=== PATIENT | female | born 1940 | race Caucasian/White ===

== ENCOUNTER 2024-05-05 09:22 | Emergency (ER) | payer MEDICARE, SELFPAY ==
[2024-05-05 09:29] VITALS: BP 167/76
[2024-05-05 11:52] LABS: % Basophils 0.6 % (0-2); % Eosinophils 0.9 % (0-6); % Immature Granulocytes 0.3 % (0-0.5); % Lymphocytes 14.9 % (20.5-51.1); % Monocytes 6.8 % (1.7-9.3); % Neutrophils 76.5 % (42.2-75.2); Absolute Eosinophils 0.1 10^3/uL (0-0.7); Absolute Monocytes 0.4 10^3/uL (0.1-0.6); Absolute Neutrophils 4.9 10^3/uL (1.4-6.5); Hematocrit 43.3 % (37.0-47.0); Hemoglobin 14.3 g/dL (12.0-16.0); Mean Corpuscular Hgb 29.9 pg (27.0-31.0); Mean Corpuscular Volume 90.4 fL (81.0-99.0); Mean Platelet Volume 9.6 fL (7.4-10.4); Nucleated Red Blood Cells % 0 %; Platelet Count 160 10^3/uL (130-400); Red Blood Cell Count 4.79 10^6/uL (4.20-5.40); Red Cell Dist. Width 14.2 % (11.5-14.5); White Blood Cell Count 6.4 10^3/uL (4.8-10.8)
[2024-05-05 12:09] LABS: ALT (SGPT) < 10 U/L (0-35); AST (SGOT) 30 U/L (14-36); Albumin 4.4 g/dl (3.5-5.0); Alkaline Phosphatase 83 U/L (38-126); Blood Urea Nitrogen 19 mg/dl (7-17); Calcium 9.7 mg/dl (8.4-10.2); Carbon Dioxide 25 mmol/L (22-30); Chloride 108 mmol/L (98-107); Glucose 97 mg/dl (70-99); Potassium 4.4 mmol/L (3.5-5.1); Sodium 139 mmol/L (135-145); Total Bilirubin 0.9 mg/dl (0.2-1.3); Total Protein 6.8 g/dl (6.3-8.2); eGFR 56.25
[2024-05-05 12:17] LABS: Troponin I 0.015 ng/ml
[2024-05-05 13:31] VITALS: BMI 28.0
[2024-05-05 13:34] VITALS: BP 183/98
--- NOTE | 2024-05-05 15:03 | ED.GENMED ---
History of Present Illness
General
Chief Complaint: Dizziness
Source: patient
Time Seen by Provider: 05/05/24 13:51
Travel History
Have you had any contact with someone who has COVID-19?: No
Do you have any symptoms of coronavirus? Fever > 100 degrees, chills, cough, shortness of breath, sore throat, loss of taste or smell, muscle aches, or headache?: No
History of Present Illness
History of Present Illness:
84-year-old female with past medical history of Parkinson's disease, hypertension, hyperlipidemia, atrial fibrillation, chronic kidney disease, diabetes presenting to the emergency department for evaluation after waking up this morning and feeling
lightheaded and as if she were going to lose her balance, this lasted for a little while but then resolved and patient notes that she feels better now. She denies any other symptoms including headache, visual changes, focal weakness or, chest pain,
shortness of breath, fevers or infectious symptoms or any other concerns. She does note that she has felt intermittently dizzy in the past but this 1 seem to be a little bit more intense. Did not take any medications prior to arrival. No other
concerns.
Past History
Past History
ED Past Medical History: Arrthythmia, HTN, Hypercholesterolemia, NIDDM, Renal failure, Psychiatric and Other (Hypoplastic kidney, compression fracture, cataracts)
ED Past Surgical History: Cardiac, Orthopedic and Other (CEA on the right, cardioversion)
Social History
Tobacco: Non-smoker
Alcohol: Occasional
Drug: None
Personal: Single
Living: alone
Review of Systems
Review of Systems
All Other Systems: ROS reviewed and negative except as documented in HPI and ROS
Phy Exam
Physical Exam
Physical Exam:
GENERAL: Alert , in no apparent distress
EYE: pupils equal and reactive, 3 mm bilateral
NECK: Supple
ENT: o/p clr, mmm.
CARDIAC: Regular rate and rhythm, faint systolic murmur right second intercostal space.
LUNGS: Clear breath sounds bilaterally, no acute respiratory distress, no wheezes/rales/rhonchi
ABDOMEN: Soft, without focal tenderness, no r/g, no cvat
NEUROLOGICAL: Alert and oriented, no focal neuro deficits, moves all extremities, ambulates using a walker but steady and without evidence for ataxia
SKIN: Warm and dry, skin intact.
MUSCULOSKELETAL: No edema, well perfused.
PSYCH: Normal and appropriate interaction.
Scores
Heart Failure Risk
Heart Failure Risk Score: Not Applicable
Heart Score for Chest Pain Patients
STEMI patient?: Not applicable
Withdrawal Assessment of Alcohol
Withdrawal Assessment Completed?: Not applicable
Course
Orders/Labs/Results
Orders:
Orders
05/05/24 09:33
Electrocardiogram (*1) Urgent
Reason for Study: Vertigo / Dizzy
05/05/24 09:34
EKG- Treatment ONCE
05/05/24 10:08
CT Head W/o Iv Contrast Urgent
Comment:
Reason For Exam: dizzy
05/05/24 11:40
Complete Blood Count/With Diff Urgent
Comprehensive Metabolic Panel Urgent
Troponin I Urgent
05/05/24 13:58
PT Consult [Pt Eval And Treat] Urgent
Activity Level: Ambulate
05/05/24 15:03
Troponin I Urgent
Abnormal Lab Results
05/05/24
11:40
Absolute Lymphs (auto) 1.0 L 10^3/uL
(1.2-3.4)
Neutrophils % 76.5 H %
(42.2-75.2)
Lymphocytes % 14.9 L %
(20.5-51.1)
Chloride 108 H mmol/L
(98-107)
BUN 19 H mg/dl
(7-17)
05/05/24 11:40
05/05/24 11:40
Vital Signs
Initial and Last Documented VS:
Initial Vital Signs
Temp Pulse Resp BP Pulse Ox
98.4 F 61 18 167/76 92
05/05/24 09:29 05/05/24 09:29 05/05/24 09:29 05/05/24 09:29 05/05/24 09:29
Last Documented Vital Signs
Temp Pulse Resp BP Pulse Ox
98.4 F 90 20 162/82 98
05/05/24 09:29 05/05/24 16:25 05/05/24 13:34 05/05/24 16:25 05/05/24 16:25
MDM/Problems Addressed
Differential Diagnosis Includes:
Vertigo, TIA, anemia, electrolyte disturbance
MDM/Problems Addressed:
84-year-old female presenting emergency department for evaluation of lightheadedness/dizziness that began this morning upon awakening, symptoms now fully resolved and patient states she feels much better. She does note a little bit of generalized
weakness but believes this is likely from her Parkinson's. She notes that she does have a walker and will intermittently use the walker. No fevers or infectious symptoms. Patient had labs ordered in triage and she had a normal troponin but non
negative so we will repeat this. Will order physical therapy consult to ensure patient's stability while ambulating. Patient ultimately wishes to be discharged home following completion of workup.
Chronic conditions affecting care: Neurological disorder
Acute Exacerbation and/or Progression of Chronic Illness: Neurological disorder
*Radiology
Radiology exam reviewed: radiology read reviewed
*Pulse Oximetry
Patient hypoxic: no
*EKG
Interpreted by ED Provider?: Yes
Comparison EKG: no changes
Heart Rate: 74
Rate: normal
Rhythm: sinus
*Critical Care Note
Total Time (30-74mins, 75-104mins- exclusive of procedures): Not Applicable
Data Reviewed
Review of Other/Old Records Reveals: Labs and Records
Source: patient
Patient Management
Discussion with other providers: Other
Escalation/DeEscalation of care consider admission/obs:
Patient seen by the physical therapy team and was able to ambulate using a walker without any difficulty. Awaiting repeat troponin with anticipation of this being normal that patient can be discharged home safely.
Repeat troponin unchanged. Patient remains asymptomatic. Stable for discharge home and outpatient management. She is aware of return precautions to the emergency department.
ED Attending Note
-
Portions of this chart may have been created with voice recognition software.� Occasional wrong word or��sound alike� substitutions may have occurred due to the inherent limitations of voice recognition software.
Discharge Plan
Departure
Patient Disposition: Home (Routine Discharge)
Date of Disposition: 05/05/24
Time of Disposition: 16:01
Patient with high blood pressure during this ER visit?: Yes
Discharge Problem:
Generalized weakness
Instructions: Dizziness
Prescriptions:
No Action
acetaminophen 325 MG tablet
650 mg PO Q4HPRN PRN (Reason: mild pain)
cyanocobalamin (vitamin B-12) 1,000 MCG tablet
1,000 mcg PO DAILY
simvastatin 20 MG tablet
40 mg PO HS
metformin 500 MG tablet extended release 24 hr
500 mg PO HS
levothyroxine 112 MCG tablet
112 mcg PO DAILY
apixaban [Eliquis] 5 MG tablet
5 mg PO BID
mirabegron [Myrbetriq] 50 MG tablet extended release 24 hr
50 mg PO DAILY
phenazopyridine 200 MG tablet
200 mg PO TID PRN (Reason: urinary burning)
Patient Comments:
patient last took 4 days ago
coenzyme Q10 30 MG capsule
30 mg PO DAILY
L.acidoph, paracasei,B. lactis 1 EACH capsule
1 ea PO DAILY
diltiazem HCl 120 MG capsule,extended release 24hr
120 mg PO HS
losartan 100 MG tablet
100 mg PO HS
dofetilide 125 MCG capsule
125 mcg PO BID
Referrals:
UNKNOWN - PT DOES,NOT KNOW [Family Provider] -
Interventions
Interventions:
*Risk Screen - Suicide Last Done: 05/05/24 09:32
*General Assessment Last Done: 05/05/24 09:32
*Neglect/Abuse Screening Last Done: 05/05/24 09:32
ED- Fall Risk Assessment Last Done: 05/05/24 13:31
*Nursing Disposition Last Done: 05/05/24 18:22
ED- Neurological Assessment Last Done: 05/05/24 13:31
ED- Cardiac Assessment Last Done: 05/05/24 13:31
ED Swallowing Screen Last Done: 05/05/24 13:39
Discharge Date and Time
Discharge Date/Time: 05/05/24 18:23
Print Language: VINCENTIAN
[2024-05-05 15:37] LABS: Troponin I 0.016 ng/ml
[2024-05-05 16:25] VITALS: BP 162/82
--- NOTE | 2024-05-05 17:10 | EDRN ---
Reviewed discharge instructions with patient. Verbalized understanding. Patient waiting to be picked up by wheelchair van around 1800.
== END 2024-05-05 18:23 | disposition home or self-care (01) ==
LOC: EMR 09:22
PROVIDERS: Emergency Medicine; Physician Assistant Medical; EMERGENCY PHYSICIAN Emergency Medicine
DX: R53.1 Weakness (principal); R42 Dizziness and giddiness; E11.22 Type 2 diabetes mellitus with diabetic chronic kidney disease; N18.9 Chronic kidney disease, unspecified; E11.36 Type 2 diabetes mellitus with diabetic cataract; E78.00 Pure hypercholesterolemia, unspecified; G20.A1 Parkinson's disease without dyskinesia, without mention of fluctuations; I12.9 Hypertensive chronic kidney disease with stage 1 through stage 4 chronic kidney disease, or unspecified chronic kidney disease; I48.91 Unspecified atrial fibrillation; Q60.5 Renal hypoplasia, unspecified; Z79.01 Long term (current) use of anticoagulants; Z79.84 Long term (current) use of oral hypoglycemic drugs; Z88.1 Allergy status to other antibiotic agents; Z88.2 Allergy status to sulfonamides
CPT/HCPCS: 99285; 70450; 80053; 84484; 85025; 93005

== ENCOUNTER → 2024-09-15 13:29 | Outpatient (REF) | payer MEDICARE, SELFPAY | LOC: PAVMRI 13:29 | PROVIDERS: ATTENDING PHYSICIAN Psychiatry & Neurology Neurology; FAMILY PHYSICIAN Family Medicine | DX: G20.A2 Parkinson's disease without dyskinesia, with fluctuations (principal) | CPT/HCPCS: 70553; A9575 ==

== ENCOUNTER → 2024-10-07 11:13 | Outpatient (REF) | payer MEDICARE, SELFPAY ==
[2024-10-07 11:57] LABS: % Basophils 0.6 % (0-2); % Eosinophils 1.6 % (0-6); % Immature Granulocytes 0.5 % (0-0.5); % Lymphocytes 9.6 % (20.5-51.1); % Monocytes 7.1 % (1.7-9.3); % Neutrophils 80.6 % (42.2-75.2); Absolute Basophils 0.1 10^3/uL (0-0.2); Absolute Eosinophils 0.2 10^3/uL (0-0.7); Absolute Immature Granulocytes 0.1 10^3/uL (0-0.05); Absolute Monocytes 0.8 10^3/uL (0.1-0.6); Absolute Neutrophils 8.5 10^3/uL (1.4-6.5); Hematocrit 38.2 % (37.0-47.0); Hemoglobin 12.9 g/dL (12.0-16.0); Mean Corp Hgb Conc. 33.8 g/dL (33.0-37.0); Mean Corpuscular Hgb 29.1 pg (27.0-31.0); Mean Platelet Volume 11.2 fL (7.4-10.4); Platelet Count 177 10^3/uL (130-400); Red Blood Cell Count 4.44 10^6/uL (4.20-5.40); Red Cell Dist. Width 13.7 % (11.5-14.5); White Blood Cell Count 10.6 10^3/uL (4.8-10.8)
[2024-10-07 12:00] LABS: ALT (SGPT) 10 U/L (0-35); AST (SGOT) 24 U/L (14-36); Alkaline Phosphatase 68 U/L (38-126); Blood Urea Nitrogen 31 mg/dl (7-17); Chloride 98 mmol/L (98-107); Glucose 73 mg/dl (70-99); HDL Cholesterol 35 mg/dl; LDL Cholesterol, Calculated 78 mg/dl; Magnesium 2.1 mg/dl (1.6-2.3); Potassium 4.3 mmol/L (3.5-5.1); Sodium 136 mmol/L (135-145); Total Bilirubin 0.5 mg/dl (0.2-1.3); Total Cholesterol 135 mg/dl (50-199); Triglyceride 114 mg/dl (10-149); Very Low Density Lipoprotein 22 mg/dl (0-30); eGFR 41.06
[2024-10-07 12:09] LABS: Albumin 3.4 g/dl (3.5-5.0); Carbon Dioxide 25 mmol/L (22-30); Total Protein 5.6 g/dl (6.3-8.2)
[2024-10-07 12:49] LABS: Vitamin B12 838 pg/ml (239-931)
[2024-10-07 13:24] LABS: Glycohemoglobin (HgbA1c) 5.6 % (4.0-5.6)
== END ==
LOC: OLABN 11:13
PROVIDERS: ATTENDING PHYSICIAN Student in an Organized Health Care Education/Training Program
DX: I48.20 Chronic atrial fibrillation, unspecified (principal); E53.8 Deficiency of other specified B group vitamins; N17.9 Acute kidney failure, unspecified; E11.40 Type 2 diabetes mellitus with diabetic neuropathy, unspecified; E78.5 Hyperlipidemia, unspecified
CPT/HCPCS: 36415; 80053; 80061; 82607; 83036; 83735; 85025

== ENCOUNTER → 2024-10-25 10:12 | Outpatient (REF) | payer OTHER, MEDICARE, SELFPAY ==
[2024-10-25 11:59] LABS: Urine Albumin Trace (Neg - Trace); Urine Bilirubin Negative (Negative); Urine Character Slightly Cloudy (Clear); Urine Color Yellow; Urine Glucose Negative (Negative); Urine Ketone Trace (Negative); Urine Leukocyte 2+ (Negative); Urine Nitrite Negative (Negative); Urine Occult Blood Negative (Negative); Urine Specific Gravity 1.015 (<1.030); Urine Urobilinogen Negative (Neg - 1+)
[2024-10-25 12:56] LABS: Urine Bacteria Many (Negative); Urine Red Blood Cell 0-2 /HPF (0-2); Urine Squamous Cell 0-2 /LPF (Few); Urine White Cell 80-90 /HPF (0-5)
== END ==
LOC: OLABN 10:12
PROVIDERS: ATTENDING PHYSICIAN Student in an Organized Health Care Education/Training Program
DX: R30.9 Painful micturition, unspecified (principal)
CPT/HCPCS: 81003; 81015; 87077; 87086

== ENCOUNTER → 2024-11-17 14:43 | Outpatient (REF) | payer MEDICARE, SELFPAY ==
[2024-11-17 15:12] LABS: Urine Albumin Trace (Neg - Trace); Urine Bilirubin 1+ (Negative); Urine Character Very Cloudy (Clear); Urine Color Yellow; Urine Glucose Negative (Negative); Urine Ketone 1+ (Negative); Urine Leukocyte 1+ (Negative); Urine Nitrite Negative (Negative); Urine Occult Blood Negative (Negative); Urine Specific Gravity 1.025 (<1.030); Urine Urobilinogen 2+ (Neg - 1+)
[2024-11-17 15:31] LABS: Urine Amorphous Seen
[2024-11-17 15:34] LABS: Urine Bacteria Few (Negative); Urine Red Blood Cell 0-2 /HPF (0-2)
== END ==
LOC: CLAB 14:43
PROVIDERS: ATTENDING PHYSICIAN Family Medicine
DX: N18.9 Chronic kidney disease, unspecified (principal); N39.0 Urinary tract infection, site not specified; Z87.440 Personal history of urinary (tract) infections
CPT/HCPCS: 81003; 81015; 87077; 87086

== ENCOUNTER 2024-12-03 18:48 | Emergency (ER) | payer MEDICARE, SELFPAY ==
[2024-12-03 18:53] VITALS: BP 136/77
[2024-12-03 19:24] LABS: % Basophils 0.5 % (0-2); % Eosinophils 1.8 % (0-6); % Immature Granulocytes 0.3 % (0-0.5); % Lymphocytes 11.1 % (20.5-51.1); % Monocytes 6.8 % (1.7-9.3); % Neutrophils 79.5 % (42.2-75.2); Absolute Eosinophils 0.1 10^3/uL (0-0.7); Absolute Lymphocytes 0.9 10^3/uL (1.2-3.4); Absolute Monocytes 0.5 10^3/uL (0.1-0.6); Absolute Neutrophils 6.2 10^3/uL (1.4-6.5); Hematocrit 38.9 % (37.0-47.0); Hemoglobin 12.6 g/dL (12.0-16.0); Mean Corp Hgb Conc. 32.4 g/dL (33.0-37.0); Mean Corpuscular Hgb 29.8 pg (27.0-31.0); Mean Platelet Volume 9.4 fL (7.4-10.4); Nucleated Red Blood Cells % 0 %; Platelet Count 203 10^3/uL (130-400); Red Blood Cell Count 4.23 10^6/uL (4.20-5.40); Red Cell Dist. Width 14.2 % (11.5-14.5); White Blood Cell Count 7.8 10^3/uL (4.8-10.8)
[2024-12-03 20:01] LABS: ALT (SGPT) 11 U/L (0-35); AST (SGOT) 29 U/L (14-36); Albumin 3.9 g/dl (3.5-5.0); Alkaline Phosphatase 64 U/L (38-126); Blood Urea Nitrogen 21 mg/dl (7-17); Calcium 9.3 mg/dl (8.4-10.2); Carbon Dioxide 27 mmol/L (22-30); Chloride 101 mmol/L (98-107); Glucose 97 mg/dl (70-99); Lipase 66 U/L (23-300); Potassium 4.3 mmol/L (3.5-5.1); Sodium 137 mmol/L (135-145); Total Bilirubin 0.5 mg/dl (0.2-1.3); Total Protein 6.1 g/dl (6.3-8.2); eGFR 50.17
[2024-12-03 22:44] VITALS: BP 139/62
[2024-12-03 22:52] VITALS: BMI 28.0
--- NOTE | 2024-12-03 22:55 | EDRN ---
Pt went to family doctor today due to 'marked drowsiness' continued abd pressure from uti. Doctor said pt could wait over the weekend to see how she feels or go to ED per pt's daughter so pt was brought to ED. No diarrhea, has had some
constipation. Pt with LLQ abdominal pain. Pt has been trying to provide urine specimen, most recently 20 minutes ago, without success. Pt had 100.6 temp 5 days ago with no return since. Pt denies n/v, cough, cp, sob.
[2024-12-03 23:00] VITALS: BP 133/49
--- NOTE | 2024-12-03 23:00 | ED.GENMED ---
History of Present Illness
General
Chief Complaint: Weakness
Source: patient and family (Daughter)
Exam Limitations: none
Time Seen by Provider: 12/03/24 22:52
History of Present Illness
History of Present Illness:
Patient complaining of recurrent urinary symptoms with urgency frequency. Treated for UTI initially with Macrobid. Then changed to Augmentin. Recent urine culture showed 60,000 strep. Was placed on Augmentin. However continues to have urinary
urgency frequency and some vague lower abdominal symptoms. No nausea or vomiting. Some fatigue. No fever. Constipated.
Past History
Past History
ED Past Medical History: Arrthythmia, HTN, Hypercholesterolemia, NIDDM, Renal failure, Psychiatric and Other (Hypoplastic kidney, compression fracture, cataracts)
ED Past Surgical History: Cardiac, Orthopedic and Other (CEA on the right, cardioversion)
Social History
Tobacco: Non-smoker
Alcohol: Occasional
Drug: None
Personal: Single
Living: alone
Review of Systems
Review of Systems
All Other Systems: Not applicable
Constitutional: Denies fever or chills
Respiratory: Reports no symptoms
Cardiac: Reports no symptoms
Phy Exam
Physical Exam
Physical Exam:
GENERAL: Alert and oriented in no apparent distress
EYE: Orbits normal.
NECK: Supple
CARDIAC: Regular rate and rhythm without any obvious murmurs.
LUNGS: Clear breath sounds,normal
ABDOMEN: Soft, bowel sounds present. Mild reproducible tenderness left lower quadrant. No rebound or guarding no mass or hernia
Neuro: Nonfocal. Speech normal. Slight masked facies
SKIN: Warm and dry, no rash or lesion, no discoloration, skin intact.
MUSCULOSKELETAL: Moderate bilateral lower extremity pitting edema right greater than left
PSYCH: Normal and appropriate interaction.
Course
Orders/Labs/Results
Orders:
Orders
12/03/24 18:55
Urinalysis Reflex To Culture Urgent
Date Specimen was Collected: 12/03/24
Time Specimen was Collected: 18:55
12/03/24 19:18
Complete Blood Count/With Diff Urgent
Comprehensive Metabolic Panel Urgent
Lipase Urgent
12/03/24 22:59
CT Abd/Pel (IV only)-DH only Urgent
Comment:
Reason For Exam: Left lower quadrant pain
Straight cath- Treatment ONCE
Abnormal Lab Results
12/03/24
19:18
MCHC 32.4 L g/dL
(33.0-37.0)
Absolute Lymphs (auto) 0.9 L 10^3/uL
(1.2-3.4)
Neutrophils % 79.5 H %
(42.2-75.2)
Lymphocytes % 11.1 L %
(20.5-51.1)
BUN 21 H mg/dl
(7-17)
Creatinine 1.1 H mg/dL
(0.6-1.0)
Total Protein 6.1 L g/dl
(6.3-8.2)
12/03/24 19:18
12/03/24 19:18
Vital Signs
Initial and Last Documented VS:
Initial Vital Signs
Temp Pulse Resp BP Pulse Ox
97.6 F 86 16 136/77 96
12/03/24 18:53 12/03/24 18:53 12/03/24 18:53 12/03/24 18:53 12/03/24 18:53
Last Documented Vital Signs
Temp Pulse Resp BP Pulse Ox
97.6 F 74 14 119/60 96
12/03/24 18:53 12/04/24 02:00 12/04/24 02:00 12/04/24 02:00 12/04/24 02:00
MDM/Problems Addressed
MDM/Problems Addressed:
Differential includes recurrent UTI. Diverticulitis. Nonspecific colitis although no diarrhea or mucousy or bloody stools. Workup in progress
*Radiology
Radiology exam reviewed: radiology read reviewed (Bladder wall thickening no evidence of obstructing stone. Some mildly dilated loops of bowel. Nonspecific in nature)
*Pulse Oximetry
Patient hypoxic: no
*Critical Care Note
Total Time (30-74mins, 75-104mins- exclusive of procedures): Not Applicable
Data Reviewed
Review of Other/Old Records Reveals: Labs, Records and Testing
Update Note
Update Note:
Patient was unable to be catheterized and unable to get a urine here. She just finished Augmentin. Options were to reattempt catheterization which patient and family refused. Await here for urine or send as an outpatient in a few days. Family
would prefer this approach. I would rather not cover with antibiotics at this time and get a better urine specimen. As for the bowel loop dilatation she clinically is not obstructed. Patient and family are comfortable with discharge to follow-up
ED Attending Note
-
Portions of this chart may have been created with voice recognition software.� Occasional wrong word or��sound alike� substitutions may have occurred due to the inherent limitations of voice recognition software.
Discharge Plan
Departure
Patient Disposition: Home (Routine Discharge)
Date of Disposition: 12/04/24
Time of Disposition: 02:06
Patient with high blood pressure during this ER visit?: Yes
Discharge Problem:
Abdominal pain/recent UTI
Instructions: Abdominal pain in adults - Discharge instructions, BLOOD PRESSURE
Prescriptions:
No Action
cyanocobalamin (vitamin B-12) 1,000 MCG tablet
1,000 mcg PO DAILY
simvastatin 20 MG tablet
40 mg PO HS
metformin 500 MG tablet extended release 24 hr
500 mg PO HS
levothyroxine 112 MCG tablet
112 mcg PO DAILY
Eliquis 5 MG tablet
5 mg PO BID
mirabegron [Myrbetriq] 50 MG tablet extended release 24 hr
50 mg PO DAILY
L.acidoph,paracasei,B.animalis 1 EACH capsule
1 ea PO DAILY
diltiazem HCl 120 MG capsule,extended release 24hr
120 mg PO HS
dofetilide 125 MCG capsule
125 mcg PO BID
amantadine HCl 100 mg Tablet
100 mg PO DAILY
carbidopa-levodopa [Sinemet CR] 25-100 mg Tablet Extended Release
1 tab PO TID
losartan 25 mg Tablet
25 mg PO HS
pitavastatin calcium 2 mg Tablet
2 mg PO HS
Referrals:
Xiang Cristobal DO [Family Provider] - Follow up in 2-3 days
Activity Restrictions/Additional Instructions:
Get the urine specimen done Friday
Light diet. Stay hydrated
Return sooner with fever increased lethargy increased abdominal pain vomiting or any other concerning send
Interventions
Interventions:
*Risk Screen - Suicide Last Done: 12/03/24 23:34
*General Assessment Last Done: 12/03/24 22:52
*Neglect/Abuse Screening Last Done: 12/03/24 22:54
*ED COVID-19 Vaccine History Last Done: 12/03/24 22:52
ED- Neurological Assessment Last Done: 12/03/24 23:34
ED- Pulmonary Assessment Last Done: 12/03/24 23:34
Discharge Date and Time
Print Language: SWEDISH
[2024-12-04 00:12] VITALS: BP 132/57
[2024-12-04 01:00] VITALS: BP 124/47
[2024-12-04 02:00] VITALS: BP 119/60
[2024-12-04 03:10] LABS: Urine Albumin Trace (Neg - Trace); Urine Bilirubin Negative (Negative); Urine Character Clear (Clear); Urine Color Yellow; Urine Glucose Negative (Negative); Urine Ketone Negative (Negative); Urine Leukocyte Trace (Negative); Urine Nitrite Negative (Negative); Urine Occult Blood 3+ (Negative); Urine Urobilinogen Negative (Neg - 1+)
[2024-12-04 04:52] LABS: Urine Bacteria Few (Negative); Urine Squamous Cell >30 /LPF (Few); Urine White Cell 0-2 /HPF (0-5)
== END 2024-12-04 02:53 | disposition home or self-care (01) ==
LOC: EMR 18:48
PROVIDERS: Emergency Medicine; EMERGENCY PHYSICIAN Emergency Medicine; FAMILY PHYSICIAN Family Medicine
DX: R10.30 Lower abdominal pain, unspecified (principal); Z87.440 Personal history of urinary (tract) infections; I10 Essential (primary) hypertension
CPT/HCPCS: 99285; 74177; 80053; 81003; 81015; 83690; 85025; Q9967

== ENCOUNTER → 2025-03-14 12:10 | Outpatient (REF) | payer OTHER, MEDICARE, SELFPAY ==
[2025-03-14 13:12] LABS: Hematocrit 29.7 % (37.0-47.0); Hemoglobin 9.1 g/dL (12.0-16.0); Mean Corp Hgb Conc. 30.6 g/dL (33.0-37.0); Mean Corpuscular Hgb 30.3 pg (27.0-31.0); Mean Platelet Volume 9.1 fL (7.4-10.4); Platelet Count 248 10^3/uL (130-400)
[2025-03-14 15:04] LABS: ALT (SGPT) 12 U/L (0-35); AST (SGOT) 17 U/L (14-36); Albumin 3.5 g/dl (3.5-5.0); Alkaline Phosphatase 108 U/L (38-126); Blood Urea Nitrogen 20 mg/dl (7-17); Calcium 8.9 mg/dl (8.4-10.2); Carbon Dioxide 24 mmol/L (22-30); Chloride 108 mmol/L (98-107); Glucose 95 mg/dl (70-99); Magnesium 2.1 mg/dl (1.6-2.3); Potassium 4.7 mmol/L (3.5-5.1); Sodium 142 mmol/L (135-145); Total Bilirubin 1.1 mg/dl (0.2-1.3); Total Protein 5.8 g/dl (6.3-8.2); eGFR 56.25
== END ==
LOC: OLABWHC 12:10
PROVIDERS: ATTENDING PHYSICIAN Family Medicine
DX: E11.9 Type 2 diabetes mellitus without complications (principal); I48.91 Unspecified atrial fibrillation; N18.9 Chronic kidney disease, unspecified; D64.9 Anemia, unspecified; G20.A1 Parkinson's disease without dyskinesia, without mention of fluctuations; I10 Essential (primary) hypertension
CPT/HCPCS: 36415; 80053; 83735; 85027

== ENCOUNTER → 2025-03-22 09:09 | Outpatient (REF) | payer MEDICARE, SELFPAY ==
[2025-03-22 11:28] LABS: Urine Albumin Negative (Neg - Trace); Urine Bilirubin Negative (Negative); Urine Character Clear (Clear); Urine Color Yellow; Urine Glucose Negative (Negative); Urine Ketone Negative (Negative); Urine Leukocyte 1+ (Negative); Urine Nitrite Negative (Negative); Urine Occult Blood Negative (Negative); Urine Urobilinogen Negative (Neg - 1+)
[2025-03-22 12:48] LABS: Urine Squamous Cell 16-20 /LPF (Few); Urine Urothelial Cell 0-2 /LPF (FEW)
[2025-03-22 12:50] LABS: Urine Bacteria Many (Negative); Urine White Cell 26-30 /HPF (0-5)
== END ==
LOC: OLABWHC 09:09
PROVIDERS: ATTENDING PHYSICIAN Family Medicine
DX: N39.0 Urinary tract infection, site not specified (principal)
CPT/HCPCS: 81003; 81015

== ENCOUNTER → 2025-03-28 08:00 | Outpatient (REF) | payer MEDICARE, SELFPAY ==
[2025-03-28 14:31] LABS: Urine Albumin 1+ (Neg - Trace); Urine Bilirubin Negative (Negative); Urine Character Clear (Clear); Urine Color Yellow; Urine Glucose Negative (Negative); Urine Ketone Negative (Negative); Urine Leukocyte 3+ (Negative); Urine Nitrite Negative (Negative); Urine Occult Blood 3+ (Negative); Urine Urobilinogen Negative (Neg - 1+)
[2025-03-28 14:50] LABS: Urine Bacteria Many (Negative); Urine White Cell 30-40 /HPF (0-5)
== END ==
LOC: OLABWHC 08:00
PROVIDERS: ATTENDING PHYSICIAN Family Medicine
DX: R35.0 Frequency of micturition (principal); R35.89 Other polyuria
CPT/HCPCS: 81003; 81015; 87086; 87088; 87186

== ENCOUNTER → 2025-04-13 10:40 | Outpatient (REF) | payer MEDICARE, SELFPAY ==
[2025-04-13 12:58] LABS: Hematocrit 33.8 % (37.0-47.0); Hemoglobin 10.9 g/dL (12.0-16.0); Mean Corp Hgb Conc. 32.2 g/dL (33.0-37.0); Mean Corpuscular Hgb 29.3 pg (27.0-31.0); Mean Corpuscular Volume 90.9 fL (81.0-99.0); Mean Platelet Volume 10.2 fL (7.4-10.4); Platelet Count 182 10^3/uL (130-400); Red Blood Cell Count 3.72 10^6/uL (4.20-5.40); Red Cell Dist. Width 14.3 % (11.5-14.5); White Blood Cell Count 9.6 10^3/uL (4.8-10.8)
[2025-04-13 13:11] LABS: ALT (SGPT) < 10 U/L (0-35); AST (SGOT) 14 U/L (14-36); Albumin 3.3 g/dl (3.5-5.0); Alkaline Phosphatase 94 U/L (38-126); Blood Urea Nitrogen 23 mg/dl (7-17); Calcium 8.6 mg/dl (8.4-10.2); Carbon Dioxide 22 mmol/L (22-30); Chloride 108 mmol/L (98-107); Glucose 78 mg/dl (70-99); Potassium 4.1 mmol/L (3.5-5.1); Sodium 138 mmol/L (135-145); Total Bilirubin 0.8 mg/dl (0.2-1.3); Total Protein 5.6 g/dl (6.3-8.2); eGFR 56.25
== END ==
LOC: OLABWPC 10:40
PROVIDERS: ATTENDING PHYSICIAN Family Medicine
DX: D64.9 Anemia, unspecified (principal); N18.9 Chronic kidney disease, unspecified; N39.0 Urinary tract infection, site not specified; G20.A1 Parkinson's disease without dyskinesia, without mention of fluctuations
CPT/HCPCS: 36415; 80053; 85027

== ENCOUNTER → 2025-05-31 10:34 | Outpatient (REF) | payer MEDICARE, SELFPAY ==
[2025-05-31 12:10] LABS: TSH 0.15 uIU/ml (0.47-4.68)
== END ==
LOC: OLABWHC 10:34
PROVIDERS: ATTENDING PHYSICIAN Family Medicine
DX: E03.9 Hypothyroidism, unspecified (principal)
CPT/HCPCS: 36415; 84439; 84443

== ENCOUNTER → 2025-09-13 09:34 | Outpatient (REF) | payer MEDICARE, SELFPAY ==
[2025-09-13 11:22] LABS: TSH 0.75 uIU/ml (0.47-4.68)
== END ==
LOC: OLABWHC 09:34
PROVIDERS: ATTENDING PHYSICIAN Family Medicine
DX: E03.9 Hypothyroidism, unspecified (principal)
CPT/HCPCS: 36415; 84439; 84443

== ENCOUNTER → 2025-10-05 12:45 | Outpatient (REF) | payer MEDICARE, SELFPAY ==
[2025-10-05 14:25] LABS: HDL Cholesterol 40 mg/dl; LDL Cholesterol, Calculated 96 mg/dl; Very Low Density Lipoprotein 16 mg/dl (0-30)
== END ==
LOC: OLABWHC 12:45
PROVIDERS: ATTENDING PHYSICIAN Family Medicine
DX: E78.5 Hyperlipidemia, unspecified (principal)
CPT/HCPCS: 36415; 80061

== ENCOUNTER → 2025-10-11 10:59 | Outpatient (REF) | payer OTHER, MEDICARE, SELFPAY ==
[2025-10-11 12:00] LABS: Hematocrit 40.3 % (37.0-47.0); Hemoglobin 12.8 g/dL (12.0-16.0); Mean Corp Hgb Conc. 31.8 g/dL (33.0-37.0); Mean Corpuscular Volume 86.1 fL (81.0-99.0); Platelet Count 177 10^3/uL (130-400); Red Cell Dist. Width 15.3 % (11.5-14.5)
[2025-10-11 12:12] LABS: ALT (SGPT) 11 U/L (0-35); AST (SGOT) 11 U/L (14-36); Albumin 3.9 g/dl (3.5-5.0); Alkaline Phosphatase 71 U/L (38-126); Blood Urea Nitrogen 27 mg/dl (7-17); Calcium 9.1 mg/dl (8.4-10.2); Carbon Dioxide 28 mmol/L (22-30); Chloride 107 mmol/L (98-107); Glucose 84 mg/dl (70-99); Potassium 4.4 mmol/L (3.5-5.1); Sodium 142 mmol/L (135-145); Total Protein 6.6 g/dl (6.3-8.2); eGFR 44.91
== END ==
LOC: OLABWHC 10:59
PROVIDERS: ATTENDING PHYSICIAN Family Medicine
DX: G20.A1 Parkinson's disease without dyskinesia, without mention of fluctuations (principal)
CPT/HCPCS: 36415; 80053; 85027